=== PATIENT | female | born 1975 ===

== ENCOUNTER 2023-08-30 14:09 | Emergency (ER) | payer OTHER ==
[~2023-08-30] VITALS: Ht 157.5 cm; Wt 86.4 kg
[2023-08-30 14:11] VITALS: TEMP 98.4
[2023-08-30 15:08] LABS: BASO % 0.6 % (0.0-2.0); EOS % 0.2 % (0.0-4.0); GRAN # 4.6 K/mm3 (1.4-6.5); HEMATOCRIT 39.6 % (37.0-47.0); LYMPH # 0.4 K/mm3 (1.2-3.4); LYMPH % 7.8 % (20.0-51.0); MEAN CELL VOLUME 85 fl (80.0-100.0); MEAN CORPUSCULAR HEMOGLOBIN 30 pg (27-31); MEAN CORPUSCULAR HGB CONC 35 g/dl (33.0-37.0); MEAN PLATELET VOLUME 10.1 fl (7.4-10.4); MONO # 0.3 K/mm3 (0.1-0.6); MONO % 6.2 % (1.7-9.3); PLATELET COUNT 197 K/mm3 (130-400); RED BLOOD COUNT 4.66 M/mm3 (4.10-5.30); REDCELL DISTRIBUTION WIDTH-CV 12.2 % (11.5-14.5)
[2023-08-30 15:18] LABS: COLLECTION METHOD CLEAN CATCH
[2023-08-30 15:25] LABS: ALBUMIN 3.8 gm/dL (3.5-5.0); BILIRUBIN,TOTAL 0.4 mg/dL (0.2-1.2); CALCIUM 8.8 mg/dL (8.4-10.2); CREATININE, serum 0.75 mg/dL (0.57-1.11); TOTAL PROTEIN 6.5 gm/dL (6.2-8.1)
[2023-08-30 15:34] LABS: URINE APPEARANCE Clear (CLEAR/HAZY); URINE BLOOD TRACE-INTACT (NEGATIVE); URINE COLOR Yellow (YELLOW); URINE GLUCOSE Negative (NEGATIVE); URINE KETONE 2+ (NEGATIVE); URINE NITRATE Negative (NEGATIVE); URINE PROTEIN(semi-quant) Negative (NEGATIVE); URINE UROBILINOGEN 0.2 E.U/dL (0.2-1.0)
[2023-08-30 15:35] LABS: SQUAMOUS EPITHELIAL 0-2 /hpf (0-10); URINE BACTERIA None Seen /hpf (NONE SEEN); URINE RBC 0-2 /hpf (0-2)
[2023-08-30] MEDS ORDERED: AMOXICILLIN875 MG PO (15:43)
[2023-08-30 16:08] VITALS: BP 112/64; PULSE 66
== END 2023-08-30 16:11 | disposition home or self-care (01) ==
LOC: COL.ER 14:09 → EDBD 14:10 → COL.ER 14:10
PROVIDERS: Physician Assistant
DX: U07.1 COVID-19 (principal); H66.92 Otitis media, unspecified, left ear; R11.0 Nausea; R51.9 Headache, unspecified; M79.10 Myalgia, unspecified site; R42 Dizziness and giddiness
CPT/HCPCS: J7030